=== PATIENT | female | born 1980 | race Caucasian/White ===

== ENCOUNTER 2017-09-04 05:36 | Day surgery (SDC) | payer OTHER ==
[2017-09-02 09:15] LABS: BASOPHILS # (AUTO) 0.02 x10^3/uL (0-0.1); BASOPHILS % (AUTO) 0 % (0-1); EOSINOPHILS # (AUTO) 0.11 x10^3/uL (0-0.4); EOSINOPHILS % (AUTO) 2 % (1-7); LYMPHOCYTES # (AUTO) 1.99 x10^3/uL (1-3.4); LYMPHOCYTES % (AUTO) 33 % (22-44); MD NO; MEAN CORPUSCULAR HEMOGLOBIN 31.6 pg (27.0-34.8); MEAN CORPUSCULAR HGB CONC 34.3 g/dL (32.4-35.8); MEAN CORPUSCULAR VOLUME 92.2 fL (80-100); MEAN PLATELET VOLUME 8.4 fL (7.4-10.4); MONOCYTES # (AUTO) 0.61 x10^3/uL (0.2-0.8); MONOCYTES % (AUTO) 10 % (2-9); NEUTROPHILS # (AUTO) 3.39 x10^3/uL (1.8-6.8); NEUTROPHILS % (AUTO) 55 % (42-75); PLATELET COUNT 235 x10^3/uL (130-400); RED CELL DISTRIBUTION WIDTH 12.7 % (9.6-15.2)
[2017-09-02 09:22] LABS: MICROSCOPIC NOT IND
[2017-09-02 09:29] LABS: ANION GAP 6 mmol/L (5-15); CHLORIDE 107 mmol/L (98-107); CREATININE 0.93 mg/dL (0.55-1.02)
[2017-09-02 09:38] LABS: CULTURE INDICATED? NO
[~2017-09-04] VITALS: Ht 165.1 cm; Wt 68.2 kg
[~2017-09-04 05:36] MED LIST: None per pt
[2017-09-04 06:17] VITALS: BP 96/58
[2017-09-04] MEDS ORDERED: LACTATED RINGERS 1,000 ML IV SCH (06:26)
[2017-09-04] MEDS ORDERED: LIDOCAINE 1%, 2ML SQ PRN (06:30)
[2017-09-04] MEDS ORDERED: LIDOCAINE 1%, 2ML ONE (06:31)
[2017-09-04] MEDS ORDERED: FENTANYL PF 250 MCG/5ML ONE (06:51)
[2017-09-04] MEDS ORDERED: MIDAZOLAM 1 MG/ML, 2ML ONE (06:51)
[2017-09-04] MEDS ORDERED: ROCURONIUM 10 MG/ML,10ML ONE (06:55)
[2017-09-04] MEDS ORDERED: PROPOFOL 10 MG/ML, 20ML ONE ×2 (06:55)
[2017-09-04] MEDS ORDERED: ONDANSETRON 2MG/ML, 2ML ONE (06:56)
[2017-09-04] MEDS ORDERED: DEXAMETHASONE 4 MG/ML, 1ML ONE ×2 (06:56)
[2017-09-04] MEDS ORDERED: NEOSTIGMINE 1 MG/ML, 10ML ONE (06:57)
[2017-09-04] MEDS ORDERED: GLYCOPYRROLATE 0.4 MG/2 ML, 2ML ONE ×2 (06:57)
[2017-09-04] MEDS ORDERED: CEFAZOLIN 1,000 MG ONE ×2 (06:58)
[2017-09-04] MEDS ORDERED: SODIUM CHLORIDE 0.9% PF 10ML ONE (06:58)
[2017-09-04] MEDS ORDERED: FUROSEMIDE 20 MG/2 ML ONE (07:08)
[2017-09-04] MEDS ORDERED: INDIGO CARMINE 0.8%, 5ML ONE (07:08)
[2017-09-04] MEDS ORDERED: THROMBIN 5,000 UNIT VIAL TP ONE (07:08)
[2017-09-04] MEDS ORDERED: EPINEPHRINE 1 MG/ML, 1ML ONE (07:08)
[2017-09-04] MEDS ORDERED: LIDOCAINE 1%, 20ML ONE (07:08)
[2017-09-04] MEDS ORDERED: NEOMY/POLYMYXIN B GU IRR. 1 ML IRRIG ONE (07:09)
[2017-09-04] MEDS ORDERED: KETOROLAC 30 MG/1 ML ONE ×2 (07:27→14:50)
[2017-09-04] MEDS ORDERED: PROMETHAZINE 25 MG/ML, 1ML IV PRN (07:30)
[2017-09-04] MEDS ORDERED: OXYcodone 5 MG/5 ML ORAL.SOL UDC PO PRN (07:30)
[2017-09-04] MEDS ORDERED: hydrALAzine 20 MG/ML, 1ML IV PRN (07:30)
[2017-09-04] MEDS ORDERED: ACETAMINOPHEN 325 MG TABLET PO PRN (07:30)
[2017-09-04] MEDS ORDERED: LABETALOL 5MG/ML, 20ML IV PRN (07:30)
[2017-09-04] MEDS ORDERED: ONDANSETRON 2MG/ML, 2ML IVPush PRN (07:30)
[2017-09-04] MEDS ORDERED: MEPERIDINE/PF 25MG/0.5ML IVPush PRN (07:30)
[2017-09-04] MEDS ORDERED: MEPERIDINE/PF 50 MG/ML ONE (09:32)
[2017-09-04] MEDS ORDERED: FENTANYL PF 100 MCG/2ML ONE (09:32)
[2017-09-04] MEDS: FENTANYL PF 100 MCG/2ML IV PRN ×2 (09:40→10:00)
[2017-09-04] MEDS ORDERED: OXYcodone 5 MG/5 ML ORAL.SOL UDC ONE (09:54)
[2017-09-04] MEDS ORDERED: ACETAMINOPHEN 650 MG/20.3 ML UDC ONE (09:54)
[2017-09-04] MEDS: HYDROmorphone 1 MG/ML, 1ML IV PRN ×2 (10:10→10:20)
[2017-09-04] MEDS ORDERED: HYDROmorphone 2 MG/ML, 1ML ONE (10:11)
[2017-09-04] MEDS ORDERED: KETOROLAC 30 MG/1 ML IVPush SCH (15:00)
== END 2017-09-04 18:30 | disposition home or self-care (01) ==
LOC: OUT 05:36 → MERGE 07:30 → OUT 18:30
PROVIDERS: ATTEND Obstetrics & Gynecology Gynecology
DX: N81.4 Uterovaginal prolapse, unspecified (principal)
CPT/HCPCS: 36415; 58270; 80048; 81003; 84703; 85014; 85025; 88305; J0171; J0690; J1100; J1170; J1885; J1940; J2175; J2250; J2405; J2704; J2710; J3010; J3490; J7120